=== PATIENT | male | born 1955 | race Caucasian/White ===

== ENCOUNTER 2017-05-31 09:39 | Emergency (ER) | payer OTHER ==
[~2017-05-31] VITALS: Ht 188 cm; Wt 113.4 kg
--- NOTE | ~2017-05-31 | EKG ---
[place] [address] [facility] [place] [address] ELECTROCARDIOGRAM REPORT Name: JUDIE DUBOIS Room #: DEP [facility] [id number] Admission: 05/31/17 Attend Phys: Discharge: 05/31/17 Date of : 57 Report #: [id number] THIS REPORT FOR: //name// 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
[~2017-05-31 09:39] MED LIST: AMARYL1 MG PO; AMARYL2 MG PO; ASPIRIN325 PO; BENAZEPRIL HCL5 MG PO; CELEXA20 MG PO; CLONAZEPAM 0.50.5 M1 PO; CLOPIDOGREL; COREG6.25 MG PO; CRESTOR10 MG PO; CRESTOR40 MG PO; METFORMIN; METFORMIN HCL500 MG PO; MULTIVITAMINS1 EAC7 PO; TRICOR145 MG PO; TRICOR48 MG PO; WELLBUTRIN SR150 MG PO; ZETIA10 MG PO
[2017-05-31 10:24] LABS: ABSOLUTE NEUTROPHILS 3.8 thou/uL (1.4-8.2); BASOPHILS 0.8 % (0.0-2.0); EOSINOPHILS 2.4 % (0.0-3.0); HEMOGLOBIN 15.9 gm/dL (14.0-18.0); LYMPHOCYTES 22.7 % (24.0-44.0); MCH 27.2 pg (26.0-34.0); MCHC 33.9 g/dL (28.0-37.0); MCV 80.4 fL (80.0-100.0); MONOCYTES 6.9 % (1.0-8.0); PLATELET COUNT 195 thou/uL (150-400); POLYS 67.2 % (36.0-66.0); RBC 5.84 mil/uL (4.50-6.00); RDW 14.8 % (10.5-14.5); WBC 5.6 thou/uL (4.0-11.0)
[2017-05-31 10:25] LABS: MANUAL DIFF NO
[2017-05-31 10:28] LABS: ANION GAP 12 mmol/L (7-16); BUN 16 mg/dL (7-18); CALCIUM 9.1 mg/dL (8.5-10.1); CHLORIDE 104 mmol/L (98-107); CO2 22 mmol/L (21-32); CREATININE 1.2 mg/dL (0.7-1.3); GLUCOSE 236 mg/dL (74-106); POTASSIUM 4.1 mmol/L (3.5-5.1); SODIUM 138 mmol/L (136-145)
[2017-05-31] MEDS ORDERED: COREG25 MG PO (10:28)
[2017-05-31] MEDS ORDERED: BENAZEPRIL HCL20 MG PO (10:28)
[2017-05-31] MEDS ORDERED: CLONAZEPAM 1 MG1 M1 PO (10:29)
[2017-05-31 10:36] LABS: TROPONIN-I < 0.04 ng/mL (<0.06)
[2017-05-31] MEDS ORDERED: FLOMAX0.4 MG PO (11:08)
[2017-05-31] MEDS ORDERED: FARXIGA5 MG PO (11:09)
[2017-05-31 12:29] VITALS: BP 117/75
== END 2017-05-31 12:30 | disposition home or self-care (01) ==
LOC: ER 09:39
PROVIDERS: Emergency Medicine
DX: R20.2 Paresthesia of skin (principal); I10 Essential (primary) hypertension; E11.9 Type 2 diabetes mellitus without complications; E78.00 Pure hypercholesterolemia, unspecified; I25.10 Atherosclerotic heart disease of native coronary artery without angina pectoris; F32.9 Major depressive disorder, single episode, unspecified; Z88.6 Allergy status to analgesic agent; Z98.890 Other specified postprocedural states